=== PATIENT | male | born 2000 | race Caucasian/White ===

== ENCOUNTER 2024-06-22 14:32 | Inpatient (IN) | payer OTHER, SELFPAY ==
[2024-06-22] VITALS (9 sets, daily range): BP systolic 103–137; BP diastolic 63–89; BMI 25.4; BMI 25.7
--- NOTE | 2024-06-22 12:51 | ED.GENMED ---
History of Present Illness
General
Chief Complaint: Extremity Pain (non-traumatic)
Time Seen by Provider: 06/22/24 12:27
History of Present Illness
History of Present Illness:
24-year-old male without significant past medical history presenting to the emergency department for right bicipital pain. Patient was working out 3 days ago, was doing upper extremity workouts, however did not have any significant pain at time of
working out. Since yesterday, has had recent pain to the right biceps. Mother and father are physicians, with their concern being compartment syndrome. Patient denies any numbness or tingling to his extremity. Particularly with extension at the
elbow. Did take some ibuprofen for pain. Denies chest pain or difficulty breathing. Denies fever or systemic symptoms. Takes creatinine after workout, otherwise denies supplement use. Denies additional acute medical complaints
Phy Exam
Physical Exam
Physical Exam:
General: Well-appearing, no clinical signs of dehydration, nontoxic and in no acute distress
HEENT: protecting airway
Neck: appears supple
CV: Normal heart rate, regular rhythm, no evidence of cyanosis
Resp: No accessory muscle use, no increased work of breathing, lungs clear to auscultation bilaterally
Abd: No distention
Extremities: No deformities, no swelling, no erythema to the right upper extremity. Generalized tenderness at the medial aspect of the right biceps muscle. No ecchymosis. Compartment is soft on palpation. Distal sensation and pulses intact.
Range of motion intact in active and passive testing, with pain elicited on extension
Neuro: alert, no focal neurologic deficit
: deferred
Rectal: deferred
Psych: Normal affect
Skin: Intact
Course
Orders/Labs/Results
Orders:
Orders
06/22/24 12:38
0.9% Sodium Chloride 1000 ml [Nss] 1,000 ml IV BOLUS
06/22/24 12:44
CPK [Creatine Phosphokinase] Urgent
Complete Blood Count/With Diff Urgent
Comprehensive Metabolic Panel Urgent
Urinalysis Reflex To Culture Urgent
Date Specimen was Collected: 06/22/24
Time Specimen was Collected: 12:39
Urine Microscopic Reflex Cult Urgent
06/22/24 13:50
0.9% Sodium Chloride 1000 ml [Nss] 1,000 ml IV BOLUS
06/22/24 14:13
Admit/Transfer Patient As Directed
Co-Sign Provider:
Level of Care: Inpatient admission
Assign to:: Medical/Surgical
Physician / Group: roberto
Diagnosis: rhabdomyolysis
Reason for Hospitalization: rhabdomyolysis
Expected length of stay greater than two midnights?: Yes
ELOS- Estimated Length of Stay in days: 2
I certify the patient meets the requirements for IP care: Yes
Code Status As Directed
Resuscitation Status: Full Code
PRN Pain Medication Management As Directed
May give lesser potent ordered pain med per pt: Yes
preference::
Protocol:: Medication orders for pain may be administered in a
manner that supports deferring to patient preference
when the pt is:
- Requesting an ordered lesser potent pain medication.
Least to most potent pain medications are defined
as: acetaminophen < NSAID < tramadol < opioids
(morphine, oxycodone, hydromorphone).
- Requesting a lesser dose of the same medication IF
ORDERED.
- Requesting a less intrusive route of administration
if both routes are prescribed by the provider (PO <
IV).
06/22/24 Dinner
Regular
At Your Request: Full Participation
Does patient need a safe tray?: No
06/22/24 15:48
0.9% Sodium Chloride 1000 ml [Nss] 1,000 ml IV 150 mls/hr
HYDROmorphone [Dilaudid] 0.5 mg IV Q4HPRN PRN
06/22/24 15:48
Activity As Directed
Activity Level: As Tolerated
Vital Signs As Directed
Frequency: Per unit guidelines
DX Deep Vein Thrombosis Video Routine
06/22/24 20:00
Heparin 5,000 units SC Q12
06/23/24 06:00
Complete Blood Count/With Diff IN AM
Comprehensive Metabolic Panel IN AM
Total CK [Creatine Phosphokinase] IN AM
Abnormal Lab Results
06/22/24
12:44
Absolute Monos (auto) 0.8 H 10^3/uL
(0.1-0.6)
Monocytes % 11.9 H %
(1.7-9.3)
AST 204 H U/L
(17-59)
ALT 63 H U/L
(0-50)
Creatine Kinase 83087 H U/L
(55-170)
Urine Bilirubin 1+ A
(Negative)
Leukocyte Esterase Rfl Trace A
(Negative)
Urine Bacteria (Reflex) Few A
(Negative)
06/22/24 12:44
06/22/24 12:44
Vital Signs
Initial and Last Documented VS:
Initial Vital Signs
Temp Pulse Resp BP Pulse Ox
98.2 F 65 20 130/89 99
06/22/24 12:09 06/22/24 12:09 06/22/24 12:09 06/22/24 12:09 06/22/24 12:09
Last Documented Vital Signs
Temp Pulse Resp BP Pulse Ox
98.1 F 78 18 131/67 98
06/22/24 15:58 06/22/24 15:58 06/22/24 15:58 06/22/24 15:58 06/22/24 15:58
MDM/Problems Addressed
MDM/Problems Addressed:
24-year-old male presenting for right upper extremity pain for 3 days. Vital signs are normal.
On exam patient is well-appearing, nontoxic. No clinical signs of dehydration. Examination of the right upper extremity is relatively benign. No obvious deformity or swelling, with range of motion intact lower suspicion for acute fracture or
malalignment. No neurovascular compromise with intact sensation and pulses. Compartments are soft with lower suspicion for compartment syndrome. Suspect bicipital tendon strain versus musculoskeletal strain. Rhabdomyolysis is a consideration.
For this reason we will obtain laboratory analysis including CPK level and urinalysis. Will start patient on IV fluids
13:45 -labs show a CPK of greater than 13,000, consistent with rhabdo. Parents updated. Will discuss with orthopedics and plan for admission and continued IV fluids
15:00 -present at bedside, in agreement without concern presently for acute compartment syndrome. Plan for continued IV fluids and trending of CPK level.
*Critical Care Note
Total Time (30-74mins, 75-104mins- exclusive of procedures): Not Applicable
ED Attending Note
-
Portions of this chart may have been created with voice recognition software.� Occasional wrong word or��sound alike� substitutions may have occurred due to the inherent limitations of voice recognition software.
Discharge Plan
Departure
Patient Disposition: Admit
Date of Disposition: 06/22/24
Time of Disposition: 13:57
Presentation/result/management discussed w/ accepting MD/DO: Hospitalist
Patient with high blood pressure during this ER visit?: No
Condition: Good
Discharge Problem:
Rhabdomyolysis
Interventions
Interventions:
*Risk Screen - Suicide Last Done: 06/22/24 13:19
*General Assessment Last Done: 06/22/24 12:45
*Neglect/Abuse Screening Last Done: 06/22/24 12:45
ED- Fall Risk Assessment Last Done: 06/22/24 13:08
*ED COVID-19 Vaccine History Last Done: 06/22/24 12:45
*Nursing Disposition Last Done: 06/22/24 15:47
ED-Skin Assessment Last Done: 06/22/24 12:49
ED-Peripheral Vascular Assessment Last Done: 06/22/24 12:49
ED-Musculoskeletal Assessment Last Done: 06/22/24 12:49
[2024-06-22 12:56] LABS: Urine Albumin Trace (Neg - Trace); Urine Bilirubin 1+ (Negative); Urine Character Clear (Clear); Urine Color Yellow; Urine Glucose Negative (Negative); Urine Ketone Negative (Negative); Urine Leukocyte Trace (Negative); Urine Nitrite Negative (Negative); Urine Occult Blood Negative (Negative); Urine Specific Gravity 1.015 (<1.030); Urine Urobilinogen Negative (Neg - 1+)
[2024-06-22 12:57] LABS: % Basophils 0.9 % (0-2); % Eosinophils 2.9 % (0-6); % Immature Granulocytes 0.5 % (0-0.5); % Lymphocytes 23.4 % (20.5-51.1); % Monocytes 11.9 % (1.7-9.3); % Neutrophils 60.4 % (42.2-75.2); Absolute Basophils 0.1 10^3/uL (0-0.2); Absolute Eosinophils 0.2 10^3/uL (0-0.7); Absolute Lymphocytes 1.5 10^3/uL (1.2-3.4); Absolute Monocytes 0.8 10^3/uL (0.1-0.6); Hematocrit 45.9 % (39.0-52.0); Hemoglobin 15.3 g/dL (13.0-18.0); Mean Corp Hgb Conc. 33.3 g/dL (33.0-37.0); Mean Corpuscular Hgb 27.2 pg (27.0-31.0); Mean Corpuscular Volume 81.7 fL (80.0-94.0); Nucleated Red Blood Cells % 0 % (-); Platelet Count 248 10^3/uL (130-400); Red Blood Cell Count 5.62 10^6/uL (4.70-6.10); Red Cell Dist. Width 12.3 % (11.5-14.5); White Blood Cell Count 6.5 10^3/uL (4.8-10.8)
[2024-06-22 13:12] LABS: Urine Bacteria Few (Negative); Urine Mucus Few; Urine Red Blood Cell 0-2 /HPF (0-2)
[2024-06-22] MEDS: NSS 1000 IV ×4 (13:14→23:14)
[2024-06-22 13:23] LABS: ALT (SGPT) 63 U/L (0-50); AST (SGOT) 204 U/L (17-59); Albumin 4.6 g/dl (3.5-5.0); Alkaline Phosphatase 57 U/L (38-126); Blood Urea Nitrogen 16 mg/dl (9-20); Calcium 10.1 mg/dl (8.4-10.2); Carbon Dioxide 29 mmol/L (22-30); Chloride 100 mmol/L (98-107); Estimated Creatinine Clearance 116 ml/min; Glucose 88 mg/dl (70-99); Potassium 4.8 mmol/L (3.5-5.1); Sodium 140 mmol/L (135-145); Total Bilirubin 0.8 mg/dl (0.2-1.3); Total Protein 7.2 g/dl (6.3-8.2); eGFR > 60.00
[2024-06-22 13:33] LABS: Creatine Phosphokinase 13684 U/L (55-170)
--- NOTE | 2024-06-22 14:16 | HPS.HSE ---
Family Physician
-
Family Physician: NOT KNOW UNKNOWN - PT DOES
Chief Complaint
-
bicep pain
History of Present Illness
24-year-old male without past medical history presenting with right bicep pain. He was working out 3 days ago and was doing upper extremity workouts and did not have any pain at that time. Since yesterday he has had pain in the bilateral biceps
but worse on the right bicep. He also has some involvement in his lats. He has decreased range of motion. His mother is a vascular surgeon and father is trauma surgeon in [facility] [employer] [facility]. They were concerned for compartment syndrome and requesting
orthopedics. Patient denies any numbness or tingling in the extremity or coolness of the extremity. He denies chest pain or shortness of breath. Denies fever.
Patient takes creatine after workup but denies any other supplements. Denies any drugs.
No surgeries.
Medical History
Past Medical History
Past Medical History: Reports None
Past Surgical History: Reports None
Social History
Tobacco: Non-smoker
Alcohol: None
Drug: None
Family History
Family History: Not pertinent
Allergies / Home Medications
Allergies reflects when Allergies were last updated in [employer].
Home Medications with original date entered in [employer]
Allergy/Medication List:
Allergies
Allergy/AdvReac Type Severity Reaction Status Date / Time
No Known Allergies Allergy Unverified 06/22/24 12:12
Home Medications
No Meds [No Current Medications] 06/22/24
Review of Systems
-
History Source: Patient
A 12 point ROS was completed and negative except as noted: Yes
Constitutional: Reports No Symptoms
EENT: Reports No Symptoms
Respiratory: Reports No Symptoms
Cardiac: Reports No Symptoms
Abdomen/GI: Reports No Symptoms
: Reports No Symptoms
Musculoskeletal: Reports No Symptoms
Skin: Reports No Symptoms
Neurological: Reports No Symptoms
Endocrine: Reports No Symptoms
Hematologic/Lymphatic: Reports No Symptoms
Psych: Reports No Symptoms
Physical Exam
Vital Signs
Vital Signs
Temp Pulse Resp BP Pulse Ox
98.2 F 75 16 115/78 100
06/22/24 12:09 06/22/24 14:00 06/22/24 14:00 06/22/24 14:00 06/22/24 14:00
Physical Exam
General: Well Developed, Well Nourished and No Apparent Distress
HEENT: NormoCephalic, Moist mucous membranes and Atraumatic
Respiratory: Clear
Cardiac: S1/S2 and Regular Rhythm; No Murmur or Rub
GI: Soft, Non Tender, Non Distended and Normal Bowel Sounds; No Organomegaly
Rectal: Deferred by Provider
Musculoskeletal: No Clubbing, No Cyanosis, No Edema and Other (bilteral bicep tenderness, limited range of motion )
Skin: No Rash
Neuro: Nonfocal/grossly intact
Laboratory Results
-
06/22/24 12:44
06/22/24 12:44
Laboratory Results
Total Bilirubin 0.8 mg/dl (0.2-1.3) 06/22/24 12:44
AST 204 U/L (17-59) H 06/22/24 12:44
ALT 63 U/L (0-50) H 06/22/24 12:44
Alkaline Phosphatase 57 U/L (38-126) 06/22/24 12:44
Data Reviewed
-
Lab Data: Labs Reviewed by me
Old Records: Reviewed
Impression/Plan
-
IMPRESSION:
PLAN:
# Bilateral bicep rhabdomyolysis
# Transaminitis secondary to rhabdomyolysis
-No examination findings to suggest compartment syndrome at this time
-Creatinine kinase of 13,000
-check CK daily
-IV fluids
-Dilaudid for pain
-Ortho notified by ER and will see if exam findings concerning for compartment syndrome
Full code
DVT prophylaxisis-heparin
Regular diet
--- NOTE | 2024-06-22 15:15 | CON.ORTHO ---
Consultation - Orthopedics
History
24-year-old male healthy presented to the Emergency Department complaints of right arm pain. Orthopedics was consulted at the request of his parents as they had concerns for compartment syndrome. They report that they are both surgeons in [facility] [place]. The mother is a vascular surgeon father is a trauma surgeon. They are concerned by his lack of improvement symptoms the last few days after a heavy workout session at the gym. Patient reports any significant trauma while lifting. Denies
hearing a pop or sudden pain. He is reported some mild progression of pain over the last few days that has not resolved. He is having some inability with terminal extension of his arm. Denies any numbness or tingling. Denies any pain at rest.
Patient denies any other significant past medical history. 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
Allergies / Home Medications
Past medical history: None
Past surgical history: None reported
Family [place] not pertinent
Social history: Lives with family, beginning graduate work in [employer] engineering
Allergy/AdvReac Type Severity Reaction Status Date / Time
No Known Allergies Allergy Unverified 06/22/24 12:12
�Medication �Instructions �Recorded
No Meds [No Current Medications] 06/22/24
Vital Signs / Lab Results
Temp Pulse Resp BP Pulse Ox
98.2 F 81 25 115/78 98
06/22/24 12:09 06/22/24 14:30 06/22/24 14:30 06/22/24 14:00 06/22/24 14:30
06/22/24 12:44
06/22/24 12:44
Creatinine kinase 13,684, AST 204, ALT 63
10 point review systems reviewed and negative unless otherwise stated
General: Pleasant, no acute distress at rest, nontoxic-appearing
Musculoskeletal right upper extremity
Well-defined musculature
Skin intact, no erythema, no ecchymotic staining
There are some mild fullness and swelling noted right antecubital fossa biceps musculature
Upper arm is soft and compressible
Patient with painless active flexion equal to contralateral extremity
Patient is lacking perhaps 15 degrees of terminal extension limited by pain
There are some reproducible pain with passive extension of arm
Patient with symmetric pronation supination compared to contralateral extremity
No pain elicited with passive pronation supination
There is a palpable biceps tendon in the antecubital fossa
Sensations intact to light touch in median, radial, ulnar nerve distributions
Motor intact distally to AIN, PIN, median, radial, ulnar nerve distributions
Palpable radial pulse distally with brisk cap refill noted
Diagnostic studies
None
Assessment / Plan
24-year-old male healthy right arm pain mild swelling with elevated creatinine kinase and transaminitis. No clinical concern for compartment syndrome currently. I had a very long detailed discussion with the patient as well as his parents who are
both physicians. They did voice some concerns regarding his elevated creatinine kinase levels. I explained to them that this does not directly affect my decision making regarding whether or not somebody has a clinical compartment syndrome. I
explained to them that it is quite uncommon to have an upper extremity compartment syndrome particularly in the absence of significant trauma or coagulopathy and his current physical exam is not consistent with this. I did speak with the admitting
service as well as the emergency room providers. They are planning on having him admitted for IV hydration. Will plan for serial CK labs to be drawn. Will plan to see patient later today for serial examination check. Will plan to reevaluate
patient in the a.m. as well. This was explained in detail to the family. Will also plan to obtain likely an ultrasound study to rule out hematoma or other space-occupying lesion in the antecubital fossa. Will also order x-rays right elbow and
humerus. Again no current clinical concern for compartment syndrome.
--- NOTE | 2024-06-22 16:45 | PTCARENOTE ---
Pt was received from ED at 1555. Pt ambulated to the room with supervision. Reporting 2-3/10 pain on arms when resting, severe pain when trying to move arms. IVF started at 150ml/hr. Dad at the bedside. Care plan reviewed with both.
--- NOTE | 2024-06-22 21:00 | PTCARENOTE ---
Pt transferred to second floor via wheelchair due to the father's request to stay the night to monitor. RN educated the pt and father of the POC. Pt was escorted by staff with belongings.
--- NOTE | 2024-06-22 21:15 | W.PN.UPDATE ---
Update Note
Progress Note Update
Patient seen and examined at bedside. He continues to deny any numbness/tingling. Reports mild improvement in pain, certainly no worse that earlier today.
PE MSK RUE
Skin intact, no erythema or ecchymotic staining
Mild fullness/swelling antecubital fossa and bicipital musculature
No pain with passive pronation and supination
No pain with active/passive flexion
Near complete extension, improved relative to exam earlier today
Mild discomfort at terminal extension
Arm remains soft and compressible
motor intact AIN/PIN/M/R/U
SILT M/R/U
Palpable radial pulse, BCR
24 yo M right bicipital/antecubital fossa swelling, h/o aggressive workout 3 days ago with elevated CK levels, likely strain without current clinical concern for compartment syndrome
F/u ultrasound study r/o hematoma or other space occupying lesions
Ice to extremity
F/U CK
Will reassess in AM
No recommendation for ortho intervention currently
[2024-06-22] MEDS: HEPARIN 5000 UNITS SC (21:20)
--- NOTE | 2024-06-22 21:35 | PTCARENOTE ---
pt off unit for ordered Ultra sound
[2024-06-22 22:00] LABS: Creatine Phosphokinase 15289 U/L (55-170)
--- NOTE | 2024-06-22 22:03 | PTCARENOTE ---
Patient transfer from the fourth floor via wheelchair accompanied by father and girlfriend. Medsurg orders. VSS> afebrile, HR78, RR18, BP123/63,
pox 98% room air. pt c/o mild headache. IVF infusing through LAC INT per order. Rt arm warm to touch, 3+ radial pulse, trace swelling. denies paresthesia, tightness, weakness. This RN notified Ultrasound department regarding ordered test, Tech
available to take patient. Patient escorted by PCT. Plan of care discussed with patient and father. Call srinivasan within reach.
[2024-06-23] MEDS: NSS 1000 IV ×4 (05:42→21:06)
[2024-06-23 06:52] LABS: % Basophils 0.9 % (0-2); % Eosinophils 4.4 % (0-6); % Immature Granulocytes 0.3 % (0-0.5); % Lymphocytes 32.2 % (20.5-51.1); % Monocytes 11.4 % (1.7-9.3); % Neutrophils 50.8 % (42.2-75.2); Absolute Basophils 0.1 10^3/uL (0-0.2); Absolute Eosinophils 0.3 10^3/uL (0-0.7); Absolute Monocytes 0.7 10^3/uL (0.1-0.6); Absolute Neutrophils 3.2 10^3/uL (1.4-6.5); Hematocrit 41.7 % (39.0-52.0); Hemoglobin 13.8 g/dL (13.0-18.0); Mean Corp Hgb Conc. 33.1 g/dL (33.0-37.0); Mean Corpuscular Hgb 26.8 pg (27.0-31.0); Mean Platelet Volume 9.4 fL (7.4-10.4); Nucleated Red Blood Cells % 0 % (-); Platelet Count 227 10^3/uL (130-400); Red Blood Cell Count 5.15 10^6/uL (4.70-6.10); Red Cell Dist. Width 12.3 % (11.5-14.5); White Blood Cell Count 6.3 10^3/uL (4.8-10.8)
[2024-06-23 07:20] LABS: ALT (SGPT) 74 U/L (0-50); AST (SGOT) 197 U/L (17-59); Albumin 3.9 g/dl (3.5-5.0); Alkaline Phosphatase 52 U/L (38-126); Blood Urea Nitrogen 11 mg/dl (9-20); Calcium 9.7 mg/dl (8.4-10.2); Carbon Dioxide 24 mmol/L (22-30); Chloride 105 mmol/L (98-107); Estimated Creatinine Clearance > 125 ml/min; Glucose 98 mg/dl (70-99); Potassium 4.6 mmol/L (3.5-5.1); Sodium 141 mmol/L (135-145); Total Bilirubin 0.6 mg/dl (0.2-1.3); Total Protein 6.3 g/dl (6.3-8.2); eGFR > 60.00
[2024-06-23 07:30] VITALS: BP 134/74
[2024-06-23 07:36] LABS: Creatine Phosphokinase 11800 U/L (55-170)
[2024-06-23] MEDS: HEPARIN 5000 UNITS SC ×2 (08:00→20:10)
[2024-06-23 08:02] VITALS: BP 134/74
--- NOTE | 2024-06-23 08:39 | W.PN.UPDATE ---
Update Note
Progress Note Update
Patient seen evaluated bedside. Patient reports that he actually feels of fairly substantially improved this morning. Feels like swelling is improved and pain has improved.
Musculoskeletal right upper extremity
Skin intact, no edema, no ecchymotic staining
Very mild swelling noted right arm antecubital fossa/biceps musculature
The arm is soft and compressible
Motor intact to AIN, PIN, median, radial, ulnar nerve distributions
Sensation tact light touch in median, radial, ulnar nerve distributions, palpable radial pulse, brisk cap refill
Very minimal discomfort at terminal extension, no pain with passive pronation supination
CK level 11,000 this morning, ultrasound upper extremity ruled out DVT, did discuss with pipe organ technician who reported no evidence of hematoma or other space-occupying fluid collection or masses
24-year-old male right arm swelling improved likely secondary to strain from working out several days ago, no clinical concern for compartment syndrome
No plans for orthopedic intervention
Can continue ice right upper extremity
Discussed with family, would recommend obtaining 1 more CK level hopefully this continues to be downtrending, regardless is no indication for orthopedic intervention
Continue fluids
Medical management per primary team, please reach out to questions or concerns
[2024-06-23 10:25] LABS: Venous Blood Gas B.E. 2.2 mmol/L (-4 to +4); Venous Blood Gas HCO3 28.8 mmol/L (22-27); Venous Blood Gas O2 Sat % 96.4 %; Venous Blood Gas pCO2 51 mmHg (35-48); Venous Blood Gas pH 7.36 (7.32-7.43); Venous Blood Gas pO2 74 mmHg (30-50)
[2024-06-23 10:29] LABS: Venous Blood Gas O2 Therapy RA
--- NOTE | 2024-06-23 11:05 | W.PN.HOSP.TC ---
Today's Communication/Plan
-
CW IV fluids
Repeat CPK in afternoon
Assessment / Plan
Assessment / Plan
Acute rhabdomyolysis secondary to excessive exertion-patient bilateral biceps muscle strain but no evidence of compartment syndrome. Appreciate orthopedic input. drop in CPK noted. Increase the IV rate to 200/h this morning. Repeat CPK in the
afternoon depending on that we will decrease IV fluids.
Urine pH is 7.0 and there is no myoglobin pigment evident based on UA. Hold on alkalinization.
Transaminitis secondary to rhabdomyolysis.
Portions of this chart may have been created with voice recognition software. Occasional wrong word or 'sound alike' substitutions may have occurred due to the inherent limitations of voice recognition software.
DW parents who are physician and went over the tx plan.
Anticipated Discharge: Within 24 hours
Subjective/Interval History
-
Date of Service: June 23, 2024
Lesser bilateral upper arm pain.
Objective Data
-
Labs:
Laboratory Results
06/23/24
06:37
WBC 6.3
Hgb 13.8
Hct 41.7
Plt Count 227
Sodium 141
Potassium 4.6
Chloride 105
Carbon Dioxide 24
BUN 11
Creatinine 0.9
Glucose 98
Calcium 9.7
Total Bilirubin 0.6
AST 197 H
ALT 74 H
Alkaline Phosphatase 52
Vital Signs:
Vital Signs
Temp Pulse Resp BP Pulse Ox
98.0 F 73 16 134/74 100
06/23/24 07:30 06/23/24 07:30 06/23/24 07:30 06/23/24 07:30 06/23/24 07:30
I&O
06/22/24 06/23/24 06/24/24
06:59 06:59 06:59
Intake Total 1500 / 1500
Balance 1500 / 1500
Review of Systems
-
Constitutional: Denies Fever
Respiratory: Denies Trouble Breathing
Cardiac: Denies Chest Pain
Abdomen/GI: Denies Nausea or Vomiting
Neuro: Denies Dizzy
Physical Exam
-
General: No Apparent Distress
HEENT: Moist Mucous Membranes
Respiratory: Non Labored Respirations; Negative Accessory Resp Muscle Use
Cardiac: Negative Tachycardic
Genito-urinary: Other (BL UE soft and mild tenderness; no ecchymosis . Palpable radial pulses.)
Neuro: AO x 3
Data Reviewed
-
Labs: Labs Reviewed by me
[2024-06-23 11:33] LABS: Urine Albumin Negative (Neg - Trace); Urine Bilirubin Negative (Negative); Urine Character Clear (Clear); Urine Color Yellow; Urine Glucose Negative (Negative); Urine Ketone Negative (Negative); Urine Leukocyte Negative (Negative); Urine Nitrite Negative (Negative); Urine Occult Blood Negative (Negative); Urine Specific Gravity 1.005 (<1.030); Urine Urobilinogen Negative (Neg - 1+)
--- NOTE | 2024-06-23 13:21 | CM ---
Met with patient and mother at bedside; initial assessment completed
Local pharmacy verified: [facility] @ [address]
Family Physician: Go Taylor DO; [place] [address]; ; NPI # [id number]
Patient reports he lives with parents in a 3 story apartment; elevator access to building; 15 steps between floors of apartment
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
DME: none
Mother will transport home
Plan: discharge to home with parents when medically stable; no services anticipated
[2024-06-23 14:45] LABS: Creatine Phosphokinase 13993 U/L (55-170)
[2024-06-23 15:00] VITALS: BP 136/81
[2024-06-23 22:28] LABS: Albumin 3.9 g/dl (3.5-5.0); Alkaline Phosphatase 64 U/L (38-126); Blood Urea Nitrogen 13 mg/dl (9-20); Calcium 9.7 mg/dl (8.4-10.2); Carbon Dioxide 29 mmol/L (22-30); Chloride 105 mmol/L (98-107); Estimated Creatinine Clearance > 125 ml/min; Glucose 147 mg/dl (70-99); Sodium 141 mmol/L (135-145); Total Protein 6.2 g/dl (6.3-8.2); eGFR > 60.00
[2024-06-23 22:29] LABS: ALT (SGPT) 89 U/L (0-50); AST (SGOT) 278 U/L (17-59); Total Bilirubin 0.4 mg/dl (0.2-1.3)
[2024-06-23 22:46] LABS: Creatine Phosphokinase 15108 U/L (55-170)
[2024-06-23 23:23] VITALS: BP 128/73
[2024-06-23] MEDS: NSS 500 IV (23:38)
--- NOTE | 2024-06-24 00:30 | W.PN.UPDATE ---
Update Note
Progress Note Update
RN notified [place] [id number], AST 278 ALT 89, will order NSS bolus 500 cc/hr, continue NSS @ 200 cc/hr. check CK, CMP in AM. Patient without any complaints, voiding wnl
father insisting Urine to be checked again in AM, will order UA in AM.
[2024-06-24] MEDS: NSS 1000 IV ×5 (03:48→23:42)
[2024-06-24 07:30] VITALS: BP 141/76
[2024-06-24 07:36] LABS: Urine Albumin Negative (Neg - Trace); Urine Bilirubin Negative (Negative); Urine Character Clear (Clear); Urine Color Yellow; Urine Glucose Negative (Negative); Urine Ketone Negative (Negative); Urine Leukocyte Trace (Negative); Urine Nitrite Negative (Negative); Urine Occult Blood Negative (Negative); Urine Specific Gravity 1.015 (<1.030); Urine Urobilinogen Negative (Neg - 1+)
[2024-06-24 08:13] LABS: Urine Bacteria Few (Negative); Urine Red Blood Cell 0-2 /HPF (0-2); Urine Squamous Cell 0-2 /LPF (Few); Urine White Cell 0-2 /HPF (0-5)
[2024-06-24] MEDS: HEPARIN 5000 UNITS SC ×2 (08:33→19:59)
[2024-06-24 10:11] LABS: ALT (SGPT) 97 U/L (0-50); AST (SGOT) 239 U/L (17-59); Alkaline Phosphatase 57 U/L (38-126); Blood Urea Nitrogen 9 mg/dl (9-20); Calcium 9.8 mg/dl (8.4-10.2); Carbon Dioxide 28 mmol/L (22-30); Chloride 105 mmol/L (98-107); Estimated Creatinine Clearance > 125 ml/min; Glucose 88 mg/dl (70-99); Potassium 4.5 mmol/L (3.5-5.1); Sodium 141 mmol/L (135-145); Total Bilirubin 0.8 mg/dl (0.2-1.3); Total Protein 6.5 g/dl (6.3-8.2); eGFR > 60.00
[2024-06-24 10:12] LABS: C-Reactive Protein < 5.00 mg/L (0.0-10.00)
[2024-06-24 10:42] LABS: TSH 2.83 uIU/ml (0.47-4.68)
[2024-06-24 10:46] LABS: Creatine Phosphokinase 12456 U/L (55-170)
[2024-06-24] MEDS: NSS IV (10:53)
--- NOTE | 2024-06-24 11:43 | CM ---
Reviewed the chart notes. CK markedly elevated. AST and ALT also remain elevated. CM continues to be available to patient/family and is monitoring medical plan for needs at discharge.
Plan: Discharge to home when medically stable. No needs anticipated.
[2024-06-24 11:49] LABS: Erythrocyte Sed Rate 8 mm/hour (0-20)
--- NOTE | 2024-06-24 13:00 | W.PN.HOSP.TC ---
Today's Communication/Plan
-
ivf
repeat ck and UA at 6pm
Assessment / Plan
Assessment / Plan
Young male well-built
NAD, resting comfortably in bed
Scleral anicteric
Moist mucous membranes
No JVD
CTA bilateral
Normal S1-S2 no murmurs
Soft nontender nondistended bowel sounds active
No peripheral pitting edema
Moves extremities spontaneously
AAOx3
Acute rhabdo secondary to excessive exertion. Bilateral bicep muscle strain without evidence of compartment syndrome
-Myalgias now resolved
-Orthopedics following
-On normal saline at a rate of 200 cc/h
-Chemistry panel not suggestive of metabolic acidosis
-Urine pH did go down to 6 from 7, however still not considered acidic at this point.
- -If becomes more acidic/trend down then likely will plan to start half NS with bicarb (50meq) and consult nephrology in order to alkalize urine
-Daily CK
-Daily UA
- -Without evidence of inflammatory or hypothyroid induced myopathies as low ESR/CRP, low TSH
Transaminitis secondary to rhabdo
Case discussed with parents at bedside and over the phone
Anticipated Discharge: 24 - 48 hours
Subjective/Interval History
-
Date of Service: June 24, 2024
seen and examiend
no new complaints
no acute overnight events
states he is feeling better muscle aches resolved
able to flex biceps without issue
no le pain or pain any where else
Objective Data
-
Labs:
Laboratory Results
06/24/24 06/24/24
06:32 09:00
Sodium Cancelled 141
Potassium Cancelled 4.5
Chloride Cancelled 105
Carbon Dioxide Cancelled 28
BUN Cancelled 9
Creatinine Cancelled 0.9
Glucose Cancelled 88
Calcium Cancelled 9.8
Total Bilirubin Cancelled 0.8
AST Cancelled 239 H
ALT Cancelled 97 H
Alkaline Phosphatase Cancelled 57
Vital Signs:
Vital Signs
Temp Pulse Resp BP Pulse Ox
97.6 F 62 16 141/76 97
06/24/24 07:30 06/24/24 07:30 06/24/24 07:30 06/24/24 07:30 06/24/24 07:30
I&O
06/23/24 06/24/24 06/25/24
06:59 06:59 06:59
Intake Total 1500 / 1500 4460 / 4460
Output Total 1100 / 1100
Balance 1500 / 1500 3360 / 3360
[2024-06-24 15:35] VITALS: BP 149/88
--- NOTE | 2024-06-24 16:52 | W.PN.ORTHO ---
Today's Communication / Plan
-
24 yo M R biceps strain, improved with elevated CK, transaminitis
Had a long discussion with father at bedside. He does have some concerns CK levels are not normalizing. Clinically he has improved. There is no indication for orthopedic intervention and they were in agreement with this. Patient did report to me
taking creatinine regularly and perhaps this or other supplements may be playing a role in his lab abnormalities. Certainly does not change the fact that there is no surgical role currently. Father did relate to me they would likely feel comfortably
returning home to [place] but will defer definitive management of lab abnormalities to medical service. Please reach out with questions or concerns.
Subjective
.
.:
Patient seen this morning at 730 AM. Reports significant improvement in right arm discomfort. Feels like his ROM has normalized and really not having substantial pain. Denies numbness or tingling. Father at bedside.
Vital Signs and Labs
.
Vital Signs and Labs:
Lab Results
06/23/24 06:37
06/24/24 09:00
Temp Pulse Resp BP Pulse Ox
97.6 F 62 16 141/76 97
06/24/24 07:30 06/24/24 07:30 06/24/24 07:30 06/24/24 07:30 06/24/24 07:30
Physical Exam
-
MSK RUE
Skin intact, no significant swelling, no palpable fullness to musculature, similar in appearance and girth compared to contralateral extremity
Symmetric pronation, supination, flexion/ extension
No sig pain at terminal extension
Motor and SILT WNL distally
BCR, Palpable pulses
[2024-06-24 19:15] LABS: Creatine Phosphokinase 12414 U/L (55-170)
[2024-06-24 20:31] LABS: Urine Albumin Negative (Neg - Trace); Urine Bilirubin Negative (Negative); Urine Character Clear (Clear); Urine Color Yellow; Urine Glucose Negative (Negative); Urine Ketone Negative (Negative); Urine Leukocyte Negative (Negative); Urine Nitrite Negative (Negative); Urine Occult Blood Negative (Negative); Urine Specific Gravity 1.015 (<1.030); Urine Urobilinogen Negative (Neg - 1+)
[2024-06-24 23:05] VITALS: BP 153/93
[2024-06-25] MEDS: NSS 1000 IV ×4 (04:55→20:34)
[2024-06-25 07:25] VITALS: BP 132/75
[2024-06-25 08:13] LABS: Creatine Phosphokinase 7047 U/L (55-170)
[2024-06-25] MEDS: HEPARIN 5000 UNITS SC ×2 (08:31→20:37)
--- NOTE | 2024-06-25 09:12 | W.PN.HOSP.TC ---
Addendum entered and electronically signed by Jagdish Patel MD 06/25/24 11:52:
Nontraumatic rhabdomyolysis
Original Note:
Today's Communication/Plan
-
recheck labs
nephro consult
Assessment / Plan
Assessment / Plan
Acute rhabdo secondary to excessive exertion. Bilateral bicep muscle strain without evidence of compartment syndrome
-Myalgias now significantly improved
-Orthopedics following, input appreciated
-On normal saline at a rate of 200 cc/h
-Chemistry panel not suggestive of metabolic acidosis
-Urine pH did go down to 6 from 7, today back to 7, however still not considered acidic at this point.
-Daily CK
-Daily UA
- -Without evidence of inflammatory or hypothyroid induced myopathies as low ESR/CRP, low TSH
CPK 15653-->11791-->39851-->52503-->7047
remains on NS at 200 cc/hr. Will plan to repeat at 5 PM and request nephro input at which point would be safe to stop IVF. Hopefully continues to drop with potential dc tomorrow
Transaminitis secondary to rhabdo
remains elevated
Case discussed with father at bedside
Anticipated Discharge: 24 - 48 hours
Subjective/Interval History
-
Date of Service: June 25, 2024
Arm/biceps pain significantly reduced
Objective Data
-
Vital Signs:
Vital Signs
Temp Pulse Resp BP Pulse Ox
97.8 F 53 16 132/75 100
06/25/24 07:25 06/25/24 07:25 06/25/24 07:25 06/25/24 07:25 06/25/24 08:52
I&O
06/24/24 06/25/24 06/26/24
06:59 06:59 06:59
Intake Total 4460 / 4460 3240 / 3240
Output Total 1100 / 1100 200 / 200
Balance 3360 / 3360 3040 / 3040
Review of Systems
-
History Source: Patient and Family (father in room)
Constitutional: Denies Fever
EENT: Reports No Symptoms Reported
Respiratory: Reports No Symptoms
Cardiac: Reports No Symptoms
Abdomen/GI: Reports No Symptoms
Breast: Reports No Symptoms
Musculoskeletal: Reports Muscle Pain (bilateral, Rt>Lt, has lessened)
Physical Exam
-
General: No Apparent Distress
HEENT: Moist Mucous Membranes
Respiratory: Non Labored Respirations; Negative Accessory Resp Muscle Use
Cardiac: Negative Tachycardic
Genito-urinary: Other (BL UE soft and mild tenderness; no ecchymosis . Palpable radial pulses.)
Neuro: AO x 3
--- NOTE | 2024-06-25 10:20 | CM ---
Reviewed the chart notes. CM continues to be available to patient/family and is monitoring medical plan for needs at discharge.
Plan: Discharge to home when medically stable.
--- NOTE | 2024-06-25 11:29 | PN.CDI ---
CDI
- -
CDI:
Physician Documentation Request
Admit Date: 06/22/24 14:32
Dear Doctor Jorge,
Patient admitted with acute rhabdomyolysis.
ER Physician Documentation: 'Patient was working out 3 days ago, was doing upper extremity workouts, however did not have any significant pain at time of working out. Since yesterday, has had recent pain to the right biceps.'
06/25 PN: 'Acute rhabdo secondary to excessive exertion. Bilateral bicep muscle strain without evidence of compartment syndrome'
Based on the above, could you clarify in the progress notes, the appropriate diagnosis, if significant, that supports the above abnormalities and additional evaluation, monitoring and/or treatment rendered:
Nontraumatic rhabdomyolysis
Traumatic rhabdomyolysis
Other
Use of terms such as suspected, likely, concern for, or probable (associated with a specific diagnosis that is being evaluated, monitored, or treated as if it exists) are acceptable and can be coded in the inpatient setting, when documented at the
time of discharge.
Thank you,
Wendy Najera RN, BSN
CDI Specialist
Available via [facility] text
Please use your independent medical judgment in providing your response.
--- NOTE | 2024-06-25 14:24 | W.CON.NEPH ---
Consultation
-
Date/Time Consultation Requested: 06/25/24 09
Date/Time Consultation Performed: 06/25/24 1445
Requesting Provider: deisi Haji
Performing Provider: Kanika Salinas
Reason for Consultation: Rhabdomyolysis
Medical History
-
Chief Complaint: muscle pain
History of Present Illness:
24-year-old male without past medical history presenting with right bicep pain. He was working out 3 days [employer] and was doing upper extremity workouts which he had not done for sometime, following day he started with pain but symptoms worsened with
swelling of arms on 06/22 but worse on the right bicep. He also has some involvement in his lats, back. He has decreased range of motion. His mother is a vascular surgeon and father is trauma surgeon in [facility]. Patient denies any numbness or
tingling in the extremity or coolness of the extremity. He denies chest pain or shortness of breath. Denies fever. Patient also takes creatine after workout but denies any other supplements. Denies any drugs. He reports not drinking enough
liquids normally.
On admit his CK was at 13k but increased to 15k next day despite IVF. He continued NS since no met acidosis and U pH over 6. CK now improving to 7k today. His cr is normal range 0.9. Denies dysuria or dark urine.
Past Medical History
none
Past Surgical History: Other (none)
Social History
parents are doctors in [facility]
supposed to start his classes this month
Tobacco: Non-Smoker
Alcohol: None
Drug: None
Family History
Family History: Not Pertinent
Allergies / Home Medications
Allergy/AdvReac Type Severity Reaction Status Date / Time
No Known Allergies Allergy Unverified 06/22/24 12:12
�Medication �Instructions �Recorded �Confirmed �Type
No Meds [No Current Medications] 06/22/24 06/22/24 History
Review of Systems
-
all complete 12 point ROS have been inquired and found negative other than stated in HPI
All other systems: Negative unless noted
Physical Exam
Vital Signs
Vital Signs
Temp Pulse Resp BP Pulse Ox
97.8 F 53 16 132/75 100
06/25/24 07:25 06/25/24 07:25 06/25/24 07:25 06/25/24 07:25 06/25/24 08:52
Lab Results
WBC 6.3 10^3/uL (4.8-10.8) 06/23/24 06:37
RBC 5.15 10^6/uL (4.70-6.10) 06/23/24 06:37
Hgb 13.8 g/dL (13.0-18.0) 06/23/24 06:37
Hct 41.7 % (39.0-52.0) 06/23/24 06:37
Plt Count 227 10^3/uL (130-400) 06/23/24 06:37
Sodium 141 mmol/L (135-145) 06/24/24 09:00
Potassium 4.5 mmol/L (3.5-5.1) 06/24/24 09:00
Chloride 105 mmol/L (98-107) 06/24/24 09:00
Carbon Dioxide 28 mmol/L (22-30) 06/24/24 09:00
BUN 9 mg/dl (9-20) 06/24/24 09:00
Creatinine 0.9 mg/dL (0.7-1.3) 06/24/24 09:00
eGFR > 60.00 06/24/24 09:00
Glucose 88 mg/dl (70-99) 06/24/24 09:00
Calcium 9.8 mg/dl (8.4-10.2) 06/24/24 09:00
Albumin 4.0 g/dl (3.5-5.0) 06/24/24 09:00
elbow Xray:
IMPRESSION: Negative radiographic evaluation of the right elbow.
Mild subcutaneous edema within the distal right upper arm.
US right UE:
IMPRESSION:
No evidence of deep venous thrombosis of the right upper extremity.
Data Reviewed
-
Labs: Labs Reviewed by me, Discussed with Patient and Discussed with Family
Assessment/Plan
-
IMP:
Acute rhabdo secondary to excessive exertion
Bilateral bicep muscle strain without evidence of compartment syndrome
Transaminitis secondary to rhabdo
Plan:
A/w Acute rhabdo s/p exercise
CK slowly improving
did not require alkalinization U pH 7
No metabolic acidosis noted
cont isotonic IVF and follow labs
once CK below 3k likely d/c IVF since improvement is slow, otherwise <5k is ideal to stop IVF
CRP, ESR normal suggest no inflammation and TSH is normal
Potassium and dallin normal, check phos level
maintains normal cr 0.9
avoid creatinine supplements
reviewed with pt about staying hydrated , increase fluid intake specially around his exercise
avoid any strenuous exercise
d/w father
[2024-06-25 15:25] VITALS: BP 137/78
[2024-06-25 17:49] LABS: Creatine Phosphokinase 6034 U/L (55-170)
[2024-06-25 23:32] VITALS: BP 133/82
[2024-06-26] MEDS: NSS 1000 IV ×2 (03:13→07:55)
[2024-06-26 07:15] LABS: ALT (SGPT) 100 U/L (0-50); AST (SGOT) 127 U/L (17-59); Albumin 3.9 g/dl (3.5-5.0); Alkaline Phosphatase 50 U/L (38-126); Blood Urea Nitrogen 13 mg/dl (9-20); Calcium 9.6 mg/dl (8.4-10.2); Carbon Dioxide 29 mmol/L (22-30); Chloride 105 mmol/L (98-107); Estimated Creatinine Clearance > 125 ml/min; Glucose 87 mg/dl (70-99); Potassium 4.4 mmol/L (3.5-5.1); Sodium 142 mmol/L (135-145); Total Bilirubin 0.5 mg/dl (0.2-1.3); Total Protein 6.3 g/dl (6.3-8.2); eGFR > 60.00
[2024-06-26 07:27] LABS: Creatine Phosphokinase 3379 U/L (55-170)
[2024-06-26] MEDS: HEPARIN 5000 UNITS SC (07:50)
[2024-06-26 08:07] VITALS: BP 141/85
--- NOTE | 2024-06-26 09:48 | W.PN.NEPH.PH ---
Today's Communication / Plan
-
dc planning
Assessment/Plan
-
IMP:
Acute rhabdo secondary to excessive exertion
Bilateral bicep muscle strain without evidence of compartment syndrome
Transaminitis secondary to rhabdo
Plan:
ok for dc from renal perspective
told pt that he needs to drink minimum 64oz/day
will need CPK/LFTs checked next week to ensure continued improvement or resolution
continue IVF until dc
-
-
Date of Service: June 26, 2024
CC / HPI / ROS
-
Chief Complaint:
rhabdomyolysis
History of Present Illness:
CPK down to 3379
LFTs slightly better
Review of Systems:
nonoliguric
Labs
-
Labs:
WBC 6.3 10^3/uL (4.8-10.8) 06/23/24 06:37
RBC 5.15 10^6/uL (4.70-6.10) 06/23/24 06:37
Hgb 13.8 g/dL (13.0-18.0) 06/23/24 06:37
Hct 41.7 % (39.0-52.0) 06/23/24 06:37
Plt Count 227 10^3/uL (130-400) 06/23/24 06:37
Sodium 142 mmol/L (135-145) 06/26/24 05:45
Potassium 4.4 mmol/L (3.5-5.1) 06/26/24 05:45
Chloride 105 mmol/L (98-107) 06/26/24 05:45
Carbon Dioxide 29 mmol/L (22-30) 06/26/24 05:45
BUN 13 mg/dl (9-20) 06/26/24 05:45
Creatinine 0.9 mg/dL (0.7-1.3) 06/26/24 05:45
eGFR > 60.00 06/26/24 05:45
Glucose 87 mg/dl (70-99) 06/26/24 05:45
Calcium 9.6 mg/dl (8.4-10.2) 06/26/24 05:45
Phosphorus 4.0 mg/dl (2.5-4.5) 06/25/24 17:09
Albumin 3.9 g/dl (3.5-5.0) 06/26/24 05:45
Physical Exam
-
Vital Signs:
Vital Signs
Temp Pulse Resp BP Pulse Ox
98.0 F 59 17 141/85 100
06/26/24 08:07 06/26/24 08:07 06/26/24 08:07 06/26/24 08:07 06/26/24 08:51
Cardiovascular:: Regular rate and rhythm
Extremity Edema:: None: Bilateral:
--- NOTE | 2024-06-26 10:18 | CM ---
Reviewed the chart notes. Patient is discharged to home today. Parents will provide transportation. CM continues to be available to patient/family and is monitoring medical plan for needs at discharge.
Plan: Discharge to home today.
--- NOTE | 2024-06-26 11:29 | PTCARENOTE ---
Patient discharged home. IV removed by IV nurse. Discharge plan reviewed with patient and patient's parents with MD in room. Patient and family out in hallway with belongings, refusing discharge vital signs. Discharge paperwork signed by patient and
discharge packet handed to patient, patient ambulated down to car independently.
--- NOTE | 2024-06-26 14:06 | W.PN.HOSP.TC ---
Today's Communication/Plan
-
Discharge home
Assessment / Plan
Assessment / Plan
NAD, resting comfortably in bed
Scleral anicteric
Moist mucous membranes
No JVD
CTA bilateral
Normal S1-S2 no murmurs
Soft nontender nondistended bowel sounds active
No peripheral pitting edema
Moves extremities spontaneously
AAOx3
Acute rhabdo secondary to excessive exertion. Bilateral bicep muscle strain without evidence of compartment syndrome
-Myalgias now significantly improved
-Orthopedics following, input appreciated
-On normal saline at a rate of 200 cc/h
-Chemistry panel not suggestive of metabolic acidosis
-Urine pH did go down to 6 from 7, today back to 7, however still not considered acidic at this point.
-Daily CK
-Daily UA
- -Without evidence of inflammatory or hypothyroid induced myopathies as low ESR/CRP, low TSH
CPK trended down
-Discussed with nephrology over [place] [facility] can discharge home with recommendations to drink 64 ounces daily x 2 weeks.
Transaminitis secondary to rhabdo
remains elevated
Discharge home. Case discussed with mother at bedside.
Anticipated Discharge: Today
Subjective/Interval History
-
Date of Service: June 26, 2024
Seen and examined. No new complaints. No acute overnight events.
Muscle tenderness resolved completely.
Urinating well.
No dark/tea colored urine
Objective Data
-
Labs:
Laboratory Results
06/26/24
05:45
Sodium 142
Potassium 4.4
Chloride 105
Carbon Dioxide 29
BUN 13
Creatinine 0.9
Glucose 87
Calcium 9.6
Total Bilirubin 0.5
AST 127 H
ALT 100 H
Alkaline Phosphatase 50
Vital Signs:
Vital Signs
Temp Pulse Resp BP Pulse Ox
98.0 F 59 17 141/85 100
06/26/24 08:07 06/26/24 08:07 06/26/24 08:07 06/26/24 08:07 06/26/24 08:51
I&O
06/25/24 06/26/24 06/27/24
06:59 06:59 06:59
Intake Total 3240 / 3240 4080 / 4080
Output Total 200 / 200
Balance 3040 / 3040 4080 / 4080
--- NOTE | 2024-06-26 14:08 | W.DCSUMMARY ---
Discharge Summary
Discharge Data
Date of Admission: 06/22/24
Date of Discharge: 06/26/24
-
Pending Results: No
Hospital Course
Presented with bilateral bicep pain worse on the right than the left. Was found to have a high CK level and admitted for rhabdomyolysis. Started on IV fluids. Fortunately, kidney function was not affected. Inflammatory markers were checked that
were low along with normal TSH. Therefore this rhabdomyolysis was likely believed to be secondary to excessive exertion. Should be noted evaluated by orthopedic surgery did not believe there was evidence to suspect compartment syndrome. Was also
evaluated by nephrology who did not believe alkalization was required however did recommend to avoid creatinine supplements and to stay well-hydrated. Continue to avoid strenuous activity. Outpatient PCP follow-up.
Discharge Plan
-
Patient Disposition: Home (Routine Discharge)
Discharge Diagnosis/Procedures: Rhabdomyolysis
Diet: No restrictions
Activity: As tolerated and No strenuous activity
Driving Restrictions: As prior to admission
Bathing Restrictions: None
Activity Restrictions/Additional Instructions:
Presented with bilateral bicep pain worse on the right than the left. Was found to have a high CK level and admitted for rhabdomyolysis. Started on IV fluids. Fortunately, kidney function was not affected. Inflammatory markers were checked that
were low along with normal TSH. Therefore this rhabdomyolysis was likely believed to be secondary to excessive exertion. Should be noted evaluated by orthopedic surgery did not believe there was evidence to suspect compartment syndrome. Was also
evaluated by nephrology who did not believe alkalization was required however did recommend to avoid creatinine supplements and to stay well-hydrated. Continue to avoid strenuous activity. Outpatient PCP follow-up.
Referrals:
UNKNOWN - PT DOES,NOT KNOW [Family Provider] -
Prescriptions:
No Action
No Current Medications
0
Discharge Orders:
Discharge Patient (As Directed); Ordered 06/26/24
Ordered By: Fercho Amos
Discharge Date and Time
Discharge Date/Time: 06/26/24 11:36
Print Language: SRI LANKAN
== END 2024-06-26 11:36 | disposition home or self-care (01) | DRG 563 ==
LOC: 2 NORTH 14:32
PROVIDERS: Hospitalist; Internal Medicine; Nurse Practitioner Gerontology; ADMITTING PHYSICIAN Hospitalist; ATTENDING PHYSICIAN Hospitalist; CONSULT PHYSICIAN Internal Medicine; EMERGENCY PHYSICIAN Student in an Organized Health Care Education/Training Program; OTHER PHYSICIAN Orthopaedic Surgery
DX: S46.111A Strain of muscle, fascia and tendon of long head of biceps, right arm, initial encounter (principal); M62.82 Rhabdomyolysis; R74.01 Elevation of levels of liver transaminase levels; X50.0XXA Overexertion from strenuous movement or load, initial encounter
CPT/HCPCS: 73080; 80053; 81003; 81015; 82550; 82805; 84100; 84443; 85025; 85652; 86140; 93971; 99285